=== PATIENT | male | born 1990 | race American Indian/Alaskan Native ===

== ENCOUNTER 2016-10-23 09:43 | Emergency (ER) | payer MEDICAID, OTHER ==
[2016-10-23 09:43] VITALS: BMI 35.9
[2016-10-23 10:03] VITALS: RESP 20; TEMP 97.6; O2SAT 98
[2016-10-23] MEDS ORDERED: Albuterol-Ipratrop 3 mg / 0.5 (3 ml) UD INH STA ×2 (10:26→13:34)
[2016-10-23] MEDS ORDERED: Sodium Chloride 0.9% 1,000 ML IV STA (10:26)
--- NOTE | 2016-10-23 10:41 | RAD ---
HISTORY: sob COMPARISON: Comparison made with chest radiograph dated 11/05/15 TECHNIQUE: Chest PA and lateral FINDINGS: LUNGS: No focal consolidation. The interstitial markings are slightly coarsened and increased with a few scattered peribronchial cuffing changes. Rule out sequela of reactive/ inflammatory airway disease. PLEURA: No significant pleural effusion identified. No pneumothorax apparent. CARDIOVASCULAR: Normal. OSSEOUS STRUCTURES: No significant abnormalities. VISUALIZED UPPER ABDOMEN: Normal. OTHER FINDINGS: None. IMPRESSION: No focal consolidation. The interstitial markings are slightly coarsened and increased with a few scattered peribronchial cuffing changes. Rule out sequela of reactive/ inflammatory airway disease.
--- NOTE | 2016-10-23 11:33 | ED PDOC ---
HPI: Asthma Time Seen by Provider: 10/23/16 10:06 Chief Complaint (Nursing): Cough, Cold, Congestion Chief Complaint (Provider): Asthma History Per: Patient History/Exam Limitations: no limitations Onset/Duration Of Symptoms: Days (x3 days) Current Symptoms Are (Timing): Still Present Additional Complaint(s): 26 year old male with a past medical history of mild intermittent asthma who presents to the emergency department with a complaint of a cough, congestion, wheezing, and shortness of breath x3 days. Reports using albuterol pump and nebulizer at home with minimal relief of symptoms. Denies chest pain, fever, abdominal pain, and intubation although patient was admitted last year for asthma. Past Medical History Reviewed: Historical Data, Nursing Documentation, Vital Signs Vital Signs: Last Vital Signs Temp 97.6 F 10/23/16 09:56 Pulse 78 10/23/16 09:56 Resp 20 10/23/16 09:56 BP 151/73 H 10/23/16 09:56 Pulse Ox 98 10/23/16 09:56 - Medical History PMH: Asthma, Gastrointestinal Ulcer, Pneumonia Denies: Chronic Kidney Disease - Surgical History Surgical History: No Surg Hx - Family History Family History: States: CAD - Social History Current smoker - smoking cessation education provided: No Alcohol: Social Drugs: Denies - Immunization History Hx Tetanus Toxoid Vaccination: Yes Hx Influenza Vaccination: Yes Hx Pneumococcal Vaccination: Yes - Home Medications Home Medications: Ambulatory Orders Medication Instructions Recorded Albuterol Sulfate [Albuterol 0.09 mg IH PRN PRN 02/27/15 Sulfate Hfa] Fluticasone/Salmeterol 100/50 2 puff INH BID #4 inhaler 03/12/15 [Advair Diskus 100/50] Methylprednisolone [Medrol Dose 4 mg PO DAILY #21 mg 03/12/15 Pack (21 tabs)] Albuterol HFA [Ventolin HFA 90 2 puff IH [id number] #1 inh 10/09/15 mcg/actuation (8 g)] Albuterol 0.083% [Albuterol 0.083% 2.5 mg IH Q4 PRN #20 neb 10/23/16 Inhal Samaria (2.5 mg/3 ml) UD] Albuterol HFA [Ventolin HFA 90 1 - 2 puff IH Q4 PRN #1 inhaler 10/23/16 mcg/actuation (8 g)] Azithromycin [Zithromax] 250 mg PO DAILY #6 tab 10/23/16 Prednisone 50 mg PO DAILY #4 tab 10/23/16 - Allergies Allergies/Adverse Reactions: Allergies Allergy/AdvReac Type Severity Reaction Status Date / Time Penicillins Allergy RASH Verified 10/23/16 10:06 Review of Systems ROS Statement: Except As Marked, All Systems Reviewed And Found Negative Constitutional: Negative for: Fever ENT: Positive for: Nose Congestion Cardiovascular: Negative for: Chest Pain Respiratory: Positive for: Cough, Shortness of Breath, Wheezing Gastrointestinal: Negative for: Abdominal Pain Physical Exam - Reviewed Nursing Documentation Reviewed: Yes Vital Signs Reviewed: Yes - Physical Exam Appears: Positive for: Non-toxic, No Acute Distress Head Exam: Positive for: ATRAUMATIC, NORMAL INSPECTION, NORMOCEPHALIC Skin: Positive for: Normal Color, Warm, Dry Eye Exam: Positive for: Normal appearance, EOMI Neck: Positive for: Normal, Supple Cardiovascular/Chest: Positive for: Regular Rate, Rhythm. Negative for: Murmur Respiratory: Positive for: Wheezing (Bilaterally with good air entry). Negative for: Normal Breath Sounds, Accessory Muscle Use, Respiratory Distress Neurologic/Psych: Positive for: Alert, Oriented (x3) - ECG O2 Sat by Pulse Oximetry: 98 (RA) Pulse Ox Interpretation: Normal - Radiology X-Ray: Read By Radiologist X-Ray Interpretation: No Acute Disease Medical Decision Making Medical Decision Making: Time: 10:26 Initial impression: Asthma exacerbation Initial plan: --Duoneb 3mg/0.5 mg (3ml) --Methylprednisolone 125 mg IVP --Sodium Chloride 1L IV --Peak Flow Pre/Post TX --Reevaluation Time: 10:39 --Chest x-ray FINDINGS: LUNGS: No focal consolidation. The interstitial markings are slightly coarsened and increased with a few scattered peribronchial cuffing changes. Rule out sequela of reactive/ inflammatory airway disease. PLEURA: No significant pleural effusion identified. No pneumothorax apparent. CARDIOVASCULAR: Normal. OSSEOUS STRUCTURES: No significant abnormalities. VISUALIZED UPPER ABDOMEN: Normal. OTHER FINDINGS: None. IMPRESSION: No focal consolidation. The interstitial markings are slightly coarsened and increased with a few scattered peribronchial cuffing changes. Rule out sequela of reactive/ inflammatory airway disease. 13:34 --Duoneb 3ml --Peak pre/post tx --improved, wheeze resolving, no shortness of breath noted or discharge, and ambulating normally. DC w albuterol, prednisone and zithromax Time: 13:38 Upon provider reevaluation patient is feeling better, is medically stable, and requires no further treatment in the ED at this time. Patient will be discharged home with Rx for Albuterol 0.083%, Ventolin HFA 90 mcg, and Zithromax 250 mg. Counseling was provided and all questions were answered regarding diagnosis and need for follow up with Dr. Brayan Solomon MD. There is agreement to discharge plan. Return if symptoms persist or worsen. Clinical Impression: Asthma exacerbation Scribe Attestation: Documented by Lissy Trevino, acting as a scribe for Zander Salmon MD. Provider Scribe Attestation: All medical record entries made by the Scribe were at my direction and personally dictated by me. I have reviewed the chart and agree that the record accurately reflects my personal performance of the history, physical exam, medical decision making, and the department course for this patient. I have also personally directed, reviewed, and agree with the discharge instructions and disposition. Disposition - Clinical Impression Clinical Impression: Asthma exacerbation - Patient ED Disposition Is Patient to be Admitted: No Counseled Patient/Family Regarding: Studies Performed, Diagnosis, Need For Followup, Rx Given - Disposition Referrals: Brayan Solomon MD [Staff Provider] - Disposition: Routine/Home Disposition Time: 13:38 Condition: STABLE Additional Instructions: See your doctor in 2-3 days for followup. Return to ER for any worse or new symptoms. Prescriptions: Albuterol 0.083% [Albuterol 0.083% Inhal Samaria (2.5 mg/3 ml) UD] 2.5 mg IH Q4 PRN #20 neb PRN Reason: Wheezing Albuterol HFA [Ventolin HFA 90 mcg/actuation (8 g)] 1 - 2 puff IH Q4 PRN #1 inhaler PRN Reason: Shortness Of Breath Azithromycin [Zithromax] 250 mg PO DAILY #6 tab Prednisone 50 mg PO DAILY #4 tab Instructions: Asthma (ED) Forms: Takes (Salvadorean)
[2016-10-23 13:40] VITALS: BP 142/82; PULSE 79
== END 2016-10-23 14:15 | disposition home or self-care (01) ==
LOC: H.ER 09:43
DX: J45.901 Unspecified asthma with (acute) exacerbation (principal)
CPT/HCPCS: 71020; 94640; 96361; 96374; 99282; J2930; J7040

== ENCOUNTER 2017-02-28 09:13 | Emergency (ER) | payer OTHER ==
[2017-02-28 09:13] VITALS: BMI 35.9
[2017-02-28 09:18] VITALS: BP 149/83; PULSE 83; TEMP 97; O2SAT 96
[2017-02-28 09:25] VITALS: RESP 16
[2017-02-28] MEDS ORDERED: Albuterol-Ipratrop 3 mg / 0.5 (3 ml) UD INH STA (09:33)
--- NOTE | 2017-02-28 09:57 | ED PDOC ---
HPI: Asthma Chief Complaint (Nursing): Cough, Cold, Congestion Chief Complaint (Provider): Cough, Congestion, Cold History Per: Patient History/Exam Limitations: no limitations Onset/Duration Of Symptoms: Days (7 days ago), Intermittent Episodes Current Symptoms Are (Timing): Still Present Additional Complaint(s): 27 y/o male with a history of mild intermittent asthma, presents to the ED complaining of cough, congestion, and mild wheeze, onset of 7 days ago. Patient denies of any fever, hemoptysis, syncope, and respiratory distress. Of note, patient also had left foot surgery. Past Medical History Reviewed: Historical Data, Nursing Documentation, Vital Signs Vital Signs: Last Vital Signs Temp 97 F L 02/28/17 09:23 Pulse 83 02/28/17 09:23 Resp 16 02/28/17 09:23 BP 149/83 02/28/17 09:23 Pulse Ox 96 02/28/17 09:23 - Medical History PMH: Asthma, Gastrointestinal Ulcer, Pneumonia Denies: Chronic Kidney Disease - Surgical History Other surgeries: left foot surgery - Family History Family History: States: CAD - Social History Current smoker - smoking cessation education provided: No Ex-Smoker (has not smoked in the last 12 months): No Alcohol: Social Drugs: Denies - Immunization History Hx Tetanus Toxoid Vaccination: Yes Hx Influenza Vaccination: Yes Hx Pneumococcal Vaccination: Yes - Home Medications Home Medications: Ambulatory Orders Medication Instructions Recorded Albuterol HFA [Ventolin HFA 90 2 puff IH [id number] #1 inh 10/09/15 mcg/actuation (8 g)] Albuterol 0.083% [Albuterol 0.083% 2.5 mg IH Q4 PRN #20 neb 02/28/17 Inhal Samaria (2.5 mg/3 ml) UD] Albuterol HFA [Ventolin HFA 90 1 - 2 puff IH Q4 PRN #1 inhaler 02/28/17 mcg/actuation (8 g)] Azithromycin [Zithromax] 250 mg PO DAILY #6 tab 02/28/17 Mometasone/Formoterol [Dulera] 2 puff IH BID #1 deborah 02/28/17 Prednisone 50 mg PO DAILY #4 tab 02/28/17 - Allergies Allergies/Adverse Reactions: Allergies Allergy/AdvReac Type Severity Reaction Status Date / Time Penicillins Allergy RASH Verified 02/28/17 09:22 Review of Systems ROS Statement: Except As Marked, All Systems Reviewed And Found Negative Constitutional: Negative for: Fever ENT: Positive for: Nose Congestion Respiratory: Positive for: Cough, Wheezing. Negative for: Hemoptysis, Other ( respiratory distress) Neurological: Negative for: Other (syncope) Physical Exam - Reviewed Nursing Documentation Reviewed: Yes (mild) Vital Signs Reviewed: Yes - Physical Exam Appears: Positive for: Non-toxic, No Acute Distress Head Exam: Positive for: ATRAUMATIC, NORMOCEPHALIC Skin: Positive for: Normal Color, Warm Eye Exam: Positive for: Normal appearance, EOMI, PERRL ENT: Positive for: Normal ENT Inspection Neck: Positive for: Normal, Painless ROM, Supple Cardiovascular/Chest: Positive for: Regular Rate, Rhythm. Negative for: Murmur Respiratory: Positive for: Wheezing (mild wheezing bilaterally). Negative for: Respiratory Distress (sppeaking full sentences without respiratory distress) Gastrointestinal/Abdominal: Positive for: Normal Exam, Soft. Negative for: Tenderness Back: Positive for: Normal Inspection Extremity: Positive for: Normal ROM. Negative for: Pedal Edema, Deformity Neurologic/Psych: Positive for: Alert, Oriented. Negative for: Motor/Sensory Deficits - ECG O2 Sat by Pulse Oximetry: 96 (RA) Pulse Ox Interpretation: Normal - Radiology X-Ray: Interpreted by Me, Viewed By Me X-Ray Interpretation: No Acute Disease Medical Decision Making Medical Decision Making: Time: --09:33 Impression: --27 y/o male with asthma exacerbation, bronchitis Plan: --Chest X-ray Albuterol 3 ml INH peak flow pre/post Reassess --11:00 X-ray was read and interpreted by me and showed no acute findings. Symptoms have improved, lungs are clear. Patient is stable for discharge, instructed to follow up with his primary medical doctor and is sent home with presriptions for Dulera, Prednisone, Albuterol, and Azithromycin. Scribe Attestation: Documented by Dileep Dior acting as a scribe for Zander Salmon DO. Disposition - Clinical Impression Clinical Impression: Bronchitis, Asthma exacerbation - Patient ED Disposition Is Patient to be Admitted: No - Disposition Referrals: Keven Seo MD [Staff Provider] - Disposition: Routine/Home Disposition Time: 11:00 Condition: STABLE Additional Instructions: Return to ER for any worse or new symptoms. Take medications as directed. Prescriptions: Albuterol 0.083% [Albuterol 0.083% Inhal Samaria (2.5 mg/3 ml) UD] 2.5 mg IH Q4 PRN #20 neb PRN Reason: Wheezing Albuterol HFA [Ventolin HFA 90 mcg/actuation (8 g)] 1 - 2 puff IH Q4 PRN #1 inhaler PRN Reason: Shortness Of Breath Azithromycin [Zithromax] 250 mg PO DAILY #6 tab Mometasone/Formoterol [Dulera] 2 puff IH BID #1 deborah Prednisone 50 mg PO DAILY #4 tab Instructions: Asthma (ED), Acute Bronchitis (ED), Wheezing (ED), How Your Lungs Work (ED) Forms: [employer] (Colombian)
--- NOTE | 2017-02-28 12:44 | RAD ---
HISTORY: chest pain/ r/o infiltrate COMPARISON: 10/23/2016 TECHNIQUE: Chest PA and lateral FINDINGS: LUNGS: No active pulmonary disease. PLEURA: No significant pleural effusion identified. No pneumothorax apparent. CARDIOVASCULAR: Normal. OSSEOUS STRUCTURES: No significant abnormalities. VISUALIZED UPPER ABDOMEN: Normal. OTHER FINDINGS: None. IMPRESSION: No active disease.
== END 2017-02-28 11:13 | disposition home or self-care (01) ==
LOC: H.ER 09:13
DX: J40 Bronchitis, not specified as acute or chronic (principal); J45.21 Mild intermittent asthma with (acute) exacerbation; Z87.891 Personal history of nicotine dependence; Z88.0 Allergy status to penicillin

== ENCOUNTER 2017-04-16 21:53 | Emergency (ER) | payer OTHER ==
[2017-04-16 21:54] VITALS: BMI 35.9
[2017-04-16 22:11] VITALS: BP 132/85; RESP 95; TEMP 98.6; O2SAT 97
[2017-04-16] MEDS ORDERED: Alum-Mag Hydrox-Simethicone Susp (30 mL) PO STA (22:37)
[2017-04-16] MEDS ORDERED: Atrop/Hyos/Scop/PhenoB Elixir PO STA (22:37)
[2017-04-16] MEDS ORDERED: Sodium Chloride 0.9% 1,000 ML IV SCH (22:45)
[2017-04-16 23:12] LABS: ALB/GLOB RATIO 1.3 (1.0-2.1); ALBUMIN 4.6 g/dL (3.5-5.0); ALT/SGPT 89 U/L (21-72); AST/SGOT 88 U/L (17-59); BASO # 0.1 K/uL (0.0-0.2); BASO % 0.5 % (0.0-2.0); BLOOD UREA NITROGEN 16 mg/dl (9-20); CALCIUM 9.7 mg/dL (8.4-10.2); EOS # 0.6 K/uL (0.0-0.7); EOS % 5.2 % (0.0-4.0); GFR AFRICAN-AMERICAN > 60; GFR NON-AFRICAN AMERICAN > 60; HEMOGLOBIN 14.6 g/dL (12.0-18.0); LIPASE 132 U/L (23-300); LYMPH # 3.3 K/uL (1.0-4.3); LYMPH % 30.1 % (20.0-40.0); MEAN CELL VOLUME 83.5 fl (80.0-94.0); MEAN CORPUSCULAR HEMOGLOBIN 27.5 pg (27.0-31.0); MEAN PLATELET VOLUME 7.7 fl (7.2-11.7); MONO # 0.9 K/uL (0.0-0.8); MONO % 7.9 % (0.0-10.0); NEUT # 6.2 K/uL (1.8-7.0); NEUT % 56.3 % (50.0-75.0); NRBC % 0.2 % (0.0-0.0); RBC 5.29 Mil/uL (4.40-5.90); RED CELL DISTRIBUTION WIDTH 14.8 % (11.5-14.5); WHITE BLOOD COUNT 11.1 K/uL (4.8-10.8)
[2017-04-16] MEDS ORDERED: Albuterol-Ipratrop 3 mg / 0.5 (3 ml) UD ONE (23:48)
[2017-04-16] MEDS: Albuterol-Ipratrop 3 mg / 0.5 (3 ml) UD IH SCH ×2 (23:52→23:53)
--- NOTE | 2017-04-17 00:58 | ED PDOC ---
HPI: Chest Pain Time Seen by Provider: 04/16/17 22:13 Chief Complaint (Nursing): Chest Pain Chief Complaint (Provider): Chest Pain History Per: Patient History/Exam Limitations: no limitations Onset/Duration Of Symptoms: Gradual, Persistent Current Symptoms Are (Timing): Still Present Exacerbating Factors: Other (worse with burping or yawning) Additional Complaint(s): 27 yo M otherwise healthy, reports lower sternal chest pain described as constant burning indigestion, occurring daily x 1 week, becoming increasingly worse. Patient states pain worsens with belching/yawning. Notes that he was diagnosed with possible ulcers at [facility] ED 3 years ago when he presented with similar symptoms. Denies following up with a PMD, GI doctor or having an endoscopy for further evaluation. Otherwise: (-) radiation, (-) diaphoresis, (- ) dyspnea, (-) pleuritic component, (-) ripping or tearing quality, (-) positional component, (-) exertional component, (-) dizziness, (-) syncope, (+) nausea, (-) vomiting, (-) calf swelling/pain, (-) neuro deficits. PCP: None Past Medical History Reviewed: Historical Data, Nursing Documentation, Vital Signs Vital Signs: Last Vital Signs Temp 98.6 F 04/16/17 22:09 Pulse 81 04/17/17 01:04 Resp 95 H 04/16/17 22:09 BP 132/85 04/16/17 22:09 Pulse Ox 97 04/17/17 01:04 - Medical History PMH: Asthma, Gastrointestinal Ulcer, Pneumonia Denies: Chronic Kidney Disease - Surgical History Surgical History: Denies: Endoscopy - Family History Family History: States: [place] (father of [place] at age 67), CAD - Immunization History Hx Tetanus Toxoid Vaccination: Yes Hx Influenza Vaccination: Yes Hx Pneumococcal Vaccination: Yes - Home Medications Home Medications: Ambulatory Orders Medication Instructions Recorded Albuterol HFA [Ventolin HFA 90 2 puff IH [id number] #1 inh 10/09/15 mcg/actuation (8 g)] Albuterol 0.083% [Albuterol 0.083% 2.5 mg IH Q4 PRN #20 neb 02/28/17 Inhal Samaria (2.5 mg/3 ml) UD] Albuterol HFA [Ventolin HFA 90 1 - 2 puff IH Q4 PRN #1 inhaler 02/28/17 mcg/actuation (8 g)] Azithromycin [Zithromax] 250 mg PO DAILY #6 tab 02/28/17 Mometasone/Formoterol [Dulera] 2 puff IH BID #1 deborah 02/28/17 Prednisone 50 mg PO DAILY #4 tab 02/28/17 Albuterol 0.083% [Albuterol 3 ml IH Q4 #100 neb 04/17/17 Sulfate 3 Ml] Azithromycin [Z-Krish] 250 mg PO DAILY #6 tab 04/17/17 Famotidine [Pepcid] 40 mg PO DAILY #20 tablet 04/17/17 predniSONE [predniSONE Tab] 40 mg PO DAILY #8 tab 04/17/17 - Allergies Allergies/Adverse Reactions: Allergies Allergy/AdvReac Type Severity Reaction Status Date / Time Penicillins Allergy RASH Verified 02/28/17 09:22 JOSE Risk Score for UA/NSTEMI - JOSE Risk Score Age > 64: NO JOSE Score: 0 Risk %: 5% Curb-65 Severity Score - CURB-65 Severity Score Confusion: No Respiratory Rate greater than/equal to 30: No Systolic BP <90 or Diastolic BP less than/equal 60mmHg: No Age >64: No Curb-65 Score: 0 Percentage 30-day mortality: 0.6% Wells Criteria for PE - Wells Criteria for Pulmonary Embolism Heart Rate >100: No Hemoptysis: No Malignancy w/treatment within 6 months, or palliative: No Total Score: 0 Review of Systems ROS Statement: Except As Marked, All Systems Reviewed And Found Negative Constitutional: Negative for: Fever, Chills, Weakness Cardiovascular: Positive for: Chest Pain. Negative for: Palpitations, Orthopnea Respiratory: Positive for: Cough (for the past few days). Negative for: Shortness of Breath, SOB with Exertion, Pleuritic Pain Gastrointestinal: Positive for: Nausea. Negative for: Vomiting, Abdominal Pain , Diarrhea Genitourinary Male: Negative for: Dysuria, Frequency Physical Exam - Reviewed Nursing Documentation Reviewed: Yes Vital Signs Reviewed: Yes - Physical Exam Comments: GENERAL APPEARANCE: Patient is awake, alert, oriented x 3, in mild painful distress. SKIN: Warm, dry; (-) cyanosis. EYES: (-) conjunctival pallor. ENMT: Mucous membranes moist. NECK: (-) tenderness, (-) stiffness, (-) lymphadenopathy, (-) JVD. CHEST AND RESPIRATORY: (-) rash, (-) chest wall tenderness. Lungs: (-) rales , (-) rhonchi, (-) wheezes, (-) rub; breath sounds equal bilaterally. HEART AND CARDIOVASCULAR: (-) irregularity; (-) murmur, (-) gallop, (-) rub. ABDOMEN AND GI: Soft; (-) distention, (-) tenderness, (-) palpable pulsatile mass. EXTREMITIES: (-) deformity; (-) edema, (-) calf tenderness. (+) distal pulses. NEURO AND PSYCH: Mental status as above. Cranial nerves grossly intact; strength symmetric. - Laboratory Results Result Diagrams: 04/16/17 22:50 04/16/17 22:50 - ECG ECG Rhythm: Positive for: Sinus Rhythm Rate: 81 O2 Sat by Pulse Oximetry: 97 (RA) Pulse Ox Interpretation: Normal Medical Decision Making Medical Decision Makin Initial orders: * EKG * Labs * CXR * 3mL IH * Lidocaine 2% viscous 15mL PO * Maalox Plus 30mL PO * NS IV * Pepcid 20mg IVP * Solumedrol 125mg IVP * Zofran Inj 4mg IVP * Peak flow pre/post Tx * Re-eval Labs reviewed: wbc is 11, troponin and LFTs negative CXR : ? RLL infiltrate, as read by TOYA. EKG : NSR at 81 bpm, (-) acute ST changes, as read by TOYA. Upon re-evaluation, patient is feeling much better. Patient reports improvement of symptoms, denies any chest pain, SOB or abdominal pain. On exam, patient remains AAOx3, in no acute distress. Lungs clear to auscultation, cardiac RRR, abdomen soft, non-tender. Diagnostic results d/w the patient in great detail. Diagnosis of chest pain likely due to dyspepsia and asthma d/w the patient. Based on history, exam and diagnostic results, plan will be for outpatient follow up. At this time the patient is stable for discharge home. Advised to follow up with primary care physician or referral provided in 1-2 days without fail. Advised to take medication as prescribed. Return to the emergency room at any time for any new or worsening symptoms. Patient states he fully agrees with and understands discharge instructions. States that he agrees with the plan and disposition. Verbalized and repeated discharge instructions and plan. I have given the patient opportunity to ask any additional questions. Scribe Attestation: Documented by Bonnie Black acting as a scribe for Sherice Richardson PA-C. Scribe Attestation: All medical record entries made by the Scribe were at my direction and personally dictated by me. I have reviewed the chart and agree that the record accurately reflects my personal performance of the history, physical exam, medical decision making, and the department course for this patient. I have also personally directed, reviewed, and agree with the discharge instructions and disposition. Disposition - Clinical Impression Clinical Impression: Chest pain, Asthma, Dyspepsia - Patient ED Disposition Is Patient to be Admitted: No Counseled Patient/Family Regarding: Studies Performed, Diagnosis, Need For Followup, Rx Given - Disposition Referrals: [facility] [Outside] Daniel Fulton MD [Staff Provider] - Disposition: Routine/Home Disposition Time: 01:00 Condition: STABLE Additional Instructions: Thank you for letting us take care of you today. You were treated for chest pain , asthma, dyspepsia. The emergency medical care you received today was directed at your acute symptoms. If you were prescribed any medication, please fill it and take as directed. It may take several days for your symptoms to resolve. Return to the Emergency Department if your symptoms worsen, do not improve, or if you have any other problems. Please contact your doctor or referral provided in 2 days for re-evaluation and follow up. Bring any paperwork you were given at discharge with you along with any medications you are taking to your follow up visit. Our treatment cannot replace ongoing medical care by a primary care provider (PCP) outside of the emergency department. Thank you for allowing the [facility] team to be part of your care today. If you had an X-Ray : A Radiologist will review the ED reading if any change in treatment is needed we will contact you. 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
[2017-04-17 01:02] VITALS: PULSE 81
--- NOTE | 2017-04-17 08:55 | RAD ---
HISTORY: chest pain COMPARISON: Chest radiograph dated 02/28/2017. TECHNIQUE: Chest PA and lateral FINDINGS: LUNGS: No active pulmonary disease. PLEURA: No significant pleural effusion identified. No pneumothorax apparent. CARDIOVASCULAR: Normal. OSSEOUS STRUCTURES: No significant abnormalities. VISUALIZED UPPER ABDOMEN: Normal. OTHER FINDINGS: None. IMPRESSION: No active disease.
--- NOTE | 2017-04-17 19:05 | CARD ---
APPROVED REPORT EKG Measurement Heart [id number] <Conclusion> Normal sinus rhythm Nonspecific intraventricular conduction delay Borderline ECG
== END 2017-04-17 01:10 | disposition home or self-care (01) ==
LOC: H.ER 21:53
DX: J45.909 Unspecified asthma, uncomplicated (principal); K30 Functional dyspepsia; Z88.0 Allergy status to penicillin; Z82.49 Family history of ischemic heart disease and other diseases of the circulatory system
CPT/HCPCS: 71046; 80053; 83690; 84484; 85025; 93005; 96361; 96374; 96375; 99282; J2405; J2930; J7040

== ENCOUNTER 2017-05-05 09:12 | Emergency (ER) | payer OTHER ==
[2017-05-05 09:13] VITALS: BMI 35.9
[2017-05-05 09:36] VITALS: BP 139/81; PULSE 93; RESP 16; TEMP 98.5; O2SAT 99
[2017-05-05] MEDS ORDERED: Albuterol-Ipratrop 3 mg / 0.5 (3 ml) UD INH STA (10:41)
[2017-05-05] MEDS ORDERED: Albuterol-Ipratrop 3 mg / 0.5 (3 ml) UD ONE (10:51)
--- NOTE | 2017-05-05 11:39 | ED PDOC ---
History of Present Illness History of Present Illness: Uriel Garza is a 27 year old male with a past medical history of asthma, who presents to the ER with complaints of wheezing and associated cough onset yesterday. Patient reports to have used his inhaler once and has been admitted to the hospital for asthma. He states that his asthma is exacerbated by weather changes as well as dust. Patient denies fever, chest pain, nausea, and vomiting. He offers no other medical complaints at this time. PMD: [facility] Provider HPI: Influenza Time Seen by Provider: 05/05/17 10:15 Chief Complaint: Cough, Cold, Congestion Chief Complaint (Provider): Wheezing History Per: Patient Exam Limitations: no limitations Onset/Duration Of Symptoms: Days (x1) Symptoms include: difficulty breathing. denies: fever, vomiting, chest pain Past Medical History Reviewed: Historical Data, Nursing Documentation, Vital Signs Vital Signs: Last Vital Signs Temp 98.5 F 05/05/17 09:33 Pulse 93 H 05/05/17 09:33 Resp 16 05/05/17 09:33 BP 139/81 05/05/17 09:33 Pulse Ox 99 05/05/17 09:33 - Medical History PMH: Asthma, Gastrointestinal Ulcer, Pneumonia Denies: Chronic Kidney Disease - Surgical History Surgical History: Denies: Endoscopy - Family History Family History: States: [place] (father of [place] at age 67), CAD - Immunization History Hx Tetanus Toxoid Vaccination: Yes Hx Influenza Vaccination: Yes Hx Pneumococcal Vaccination: Yes - Home Medications Home Medications: Ambulatory Orders Medication Instructions Recorded Albuterol HFA [Ventolin HFA 90 2 puff IH [id number] #1 inh 10/09/15 mcg/actuation (8 g)] Azithromycin [Zithromax] 250 mg PO DAILY #6 tab 02/28/17 Mometasone/Formoterol [Dulera] 2 puff IH BID #1 deborah 02/28/17 Prednisone 50 mg PO DAILY #4 tab 02/28/17 Albuterol 0.083% [Albuterol 3 ml IH Q4 #100 neb 04/17/17 Sulfate 3 Ml] Azithromycin [Z-Krish] 250 mg PO DAILY #6 tab 04/17/17 Famotidine [Pepcid] 40 mg PO DAILY #20 tablet 04/17/17 Albuterol 0.083% [Albuterol 0.083% 2.5 mg IH Q4 PRN #20 neb 05/05/17 Inhal Samaria (2.5 mg/3 ml) UD] Albuterol HFA [Ventolin HFA 90 1 - 2 puff IH Q4 PRN #1 inhaler 05/05/17 mcg/actuation (8 g)] predniSONE [predniSONE Tab] 40 mg PO DAILY #8 tab 05/05/17 - Allergies Allergies/Adverse Reactions: Allergies Allergy/AdvReac Type Severity Reaction Status Date / Time Penicillins Allergy RASH Verified 02/28/17 09:22 Review of Systems ROS Statement: Except As Marked, All Systems Reviewed And Found Negative Constitutional: Negative for: Fever Cardiovascular: Negative for: Chest Pain Respiratory: Positive for: Cough, Wheezing Gastrointestinal: Negative for: Nausea, Vomiting Physical Exam - Reviewed Nursing Documentation Reviewed: Yes Vital Signs Reviewed: Yes - Physical Exam Appears: Positive for: Non-toxic, No Acute Distress Head Exam: Positive for: ATRAUMATIC Skin: Positive for: Normal Color, Warm, Dry Eye Exam: Positive for: EOMI, Normal appearance, PERRL ENT: Positive for: Normal ENT Inspection Neck: Positive for: Normal, Painless ROM Cardiovascular/Chest: Positive for: Regular Rate, Rhythm. Negative for: Murmur Respiratory: Positive for: Wheezing (diffuse bilaterally). Negative for: Respiratory Distress Gastrointestinal/Abdominal: Positive for: Normal Exam, Soft. Negative for: Tenderness Back: Positive for: Normal Inspection. Negative for: L CVA Tenderness, R CVA Tenderness, Vertebral Tenderness Extremity: Positive for: Normal ROM. Negative for: Deformity, Swelling Neurologic/Psych: Positive for: Alert, Oriented Medical Decision Making Medical Decision Making: Time: 10:42 Impresion; Asthma Exacerbation Plan: --Duoneb 3 ml INH --Prednisone 60 mg PO --Peak Flow Tx Scribe Attestation: Documented by Lindsay Augustine, acting as a scribe for Gerasim Orbelyan MD Provider Scribe Attestation: All medical record entries made by the Scribe were at my direction and personally dictated by me. I have reviewed the chart and agree that the record accurately reflects my personal performance of the history, physical exam, medical decision making, and the department course for this patient. I have also personally directed, reviewed, and agree with the discharge instructions and disposition. - ECG O2 Sat by Pulse Oximetry: 99 (RA) Pulse Ox Interpretation: Normal - Progress Re-evaluation Time: 12:25 Condition: Re-examined, Improved Disposition - Clinical Impression Clinical Impression: Asthma exacerbation - Patient ED Disposition Is Patient to be Admitted: No Doctor Will See Patient In The: Office Counseled Patient/Family Regarding: Studies Performed, Diagnosis, Need For Followup - Disposition Referrals: [facility] [Outside] Disposition: Routine/Home Disposition Time: 12:25 Condition: GOOD Additional Instructions: Take your medications as instructed. Follow up with your PCP in 2-3 days. Prescriptions: Albuterol 0.083% [Albuterol 0.083% Inhal Samaria (2.5 mg/3 ml) UD] 2.5 mg IH Q4 PRN #20 neb PRN Reason: Wheezing Albuterol HFA [Ventolin HFA 90 mcg/actuation (8 g)] 1 - 2 puff IH Q4 PRN #1 inhaler PRN Reason: Shortness Of Breath predniSONE [predniSONE Tab] 40 mg PO DAILY #8 tab Instructions: Asthma in Adults
== END 2017-05-05 13:01 | disposition home or self-care (01) ==
LOC: H.ER 09:12
DX: J45.901 Unspecified asthma with (acute) exacerbation (principal)